=== PATIENT | female | born 1960 | race Caucasian/White ===

== ENCOUNTER 2016-05-13 05:22 | Day surgery (SDC) | payer BC ==
[~2016-05-13 05:22] MED LIST: ACET500CAP PO; ASAB PO; B12100T PO; CALTRAT600 PO; CAMILA0.35 MG PO; NORCO1 TA1 PO; PREV30 PO; PRILO PO; PROVERA 10 MG T10 MG PO; PYRID60 PO; RELA5 PO; VITAMIN D31000 UNIT PO; ZESTRIL20 MG PO; [UNRECOGNIZED DRUG - OTHER] PO
[2016-09-01] MEDS ORDERED: ULTRAM50 PO (15:52)
[2016-09-11] MEDS ORDERED: OXYCOD PO (10:49)
[2016-09-11] MEDS ORDERED: C5 (10:49)
== END 2016-05-13 07:50 | disposition home or self-care (01) ==
LOC: SDC 05:22
PROVIDERS: Orthopaedic Surgery
PROC: 3E0R3BZ Introduction of Anesthetic Agent into Spinal Canal, Percutaneous Approach (ICD-10-PCS; 2016-05-13)
PROC: 3E0R33Z Introduction of Anti-inflammatory into Spinal Canal, Percutaneous Approach (ICD-10-PCS; principal; 2016-05-13 07:00)
DX: M54.16 Radiculopathy, lumbar region (principal); G70.00 Myasthenia gravis without (acute) exacerbation; I10 Essential (primary) hypertension; G47.30 Sleep apnea, unspecified; M19.90 Unspecified osteoarthritis, unspecified site; Z98.84 Bariatric surgery status; K21.9 Gastro-esophageal reflux disease without esophagitis; Z98.890 Other specified postprocedural states; Z79.82 Long term (current) use of aspirin; Z79.899 Other long term (current) drug therapy
CPT/HCPCS: 84703; J2250; J3010; Q9967